=== PATIENT | female | born 1985 | race African-American/Black ===

== ENCOUNTER 2016-12-17 23:44 | Emergency (ER) | payer MEDICAID ==
[~2016-12-17] VITALS: Ht 162.6 cm; Wt 61.2 kg
[~2016-12-17 23:44] MED LIST: LORAZEPAM0.5 MG ORAL
[2016-12-17] MEDS ORDERED: EPINEPHrine 30ml ONE (23:50)
[2016-12-17] MEDS ORDERED: EPINEPHrine 1mg/1ml Amp ONE (23:52)
[2016-12-18] VITALS: BP 130/70
[2016-12-18] MEDS ORDERED: DiphenhydrAMINE 50mg/ml Inj IVP ONE
[2016-12-18] MEDS ORDERED: Solu-MEDROL 125mg Inj IVP ONE
[2016-12-18] MEDS ORDERED: EPINEPHrine 1mg/1ml Amp IM ONE
[2016-12-18] MEDS ORDERED: Albuterol ud Inhalation HHN ONE
[2016-12-18 00:30] VITALS: BP 128/72
[2016-12-18] MEDS ORDERED: EPIPEN 2-P0.3 MG/0.3 IM (00:47)
--- NOTE | 2016-12-18 00:48 | Emergency Room Report ---
History of Present Illness General Chief Complaint: Allergic Reaction Source: Patient Present Illness HPI Is a 30-year-old female with a history of allergy to shellfish. She presents with chief complaint of severe allergic reaction that started about 10 minutes ago. She accidentally ate some shellfish. Complaining of throat closing off. Complaining of chest tightness and unable to breathe. Has not anything for this. Denies any fever chills denies any nausea vomiting. Symptom is severe. Allergies: Coded Allergies: ACETAMINOPHEN (Verified Allergy, Unknown, 08/10/16) HYDROCODONE (Verified Allergy, Unknown, 08/10/16) SHELLFISH DERIVED (Verified Allergy, Unknown, 12/18/16) Patient History Past Medical History: see triage record, old chart reviewed Past Surgical History: none Pertinent Family History: none Social History: Denies: smoking Last Menstrual Period: DEC 13 Now: No Immunizations: other Reviewed Nursing Documentation: PMH: Agreed, PSxH: Agreed Nursing Documentation-PMH Past Medical History: No Stated History Review of Systems Eye: Denies: blurred vision, eye pain ENT: Denies: ear pain, nose congestion, throat swelling Respiratory: Reports: shortness of breath, Denies: cough Cardiovascular: Denies: chest pain, palpitations Gastrointestinal: Denies: abdominal pain, diarrhea, nausea, vomiting Musculoskeletal: Denies: back pain, joint pain Skin: Denies: rash Neurological: Denies: headache, numbness Endocrine: Denies: increased thirst, increased urine Hematologic/Lymphatic: Denies: easy bruising All Other Systems: negative except mentioned in HPI Physical Exam Vital Signs Date Time Temp Pulse Resp B/P Pulse Ox O2 Delivery O2 Flow Rate FiO2 12/17/16 23:56 99.0 118 23 132/73 100 Room Air 12/18/16 00:00 21 vitals with tachycardia Sp02 EP Interpretation: reviewed, normal General Appearance: well appearing, alert, severe distress Head: normocephalic, atraumatic Eyes: bilateral eye EOMI, bilateral eye PERRL ENT: hearing grossly normal, normal pharynx Neck: full range of motion, supple, no meningismus Respiratory: chest non-tender, lungs clear, normal breath sounds, decreased breath sounds, accessory muscle use Cardiovascular #1: regular rate, rhythm, no murmur Gastrointestinal: normal bowel sounds, non tender, no mass, no organomegaly, no bruit, non-distended Musculoskeletal: back normal, gait/station normal, normal range of motion Neurologic: alert, oriented x3 Psychiatric: mood/affect normal Skin: warm/dry Procedures Critical Care Time Critical Care Time Critical care is mandated in this patient who presented with anaphylaxis secondary to food allergy. Patient require my urgent intervention to attenuate the risks of respiratory collapse which may lead to cardiovascular collapse and . Critical care time is 35 minutes excluding any reportable procedure. Critical care time included evaluation, multiple reevaluation, looking at old charts, interpreting laboratory and diagnostic data, discussing case with patient and family and consultants, and charting. 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 She is comfortable now after epinephrine, Benadryl and Solu-Medrol. We'll observe for rebound effect. If normal, we'll discharge home with EpiPen. Last Vital Signs Date Time Temp Pulse Resp B/P Pulse Ox O2 Delivery O2 Flow Rate FiO2 12/18/16 00:10 98 24 100 Room Air 21 12/18/16 00:00 98.9 130/70 Status: improved Disposition: HOME, SELF-CARE Condition: Stable Scripts Epinephrine (Epipen 2-August) 0.3 Mg/0.3 Ml Auto.injct 0.3 MG IM ONCE, #1 EA Prov: JUANCARLOS VANN M.D. 12/18/16 Referrals: NOT CHOSEN IPA/,REFERRING (PCP) Additional Instructions: Avoid seafood. Followup your DrSohail in 2-3 days. Return if worse. Use EpiPen if you have a severe reaction. JUANCARLOS VANN M.D. Dec 18, 2016 00:48
[2016-12-18 01:15] VITALS: BP 126/76
[2016-12-18 02:00] VITALS: BP 99/75
[2016-12-18 02:05] VITALS: BP 99/75
== END 2016-12-18 02:10 | disposition home or self-care (01) ==
LOC: EMR 23:50
DX: T78.02XA Anaphylactic reaction due to shellfish (crustaceans), initial encounter (principal); Z88.6 Allergy status to analgesic agent; Z91.013 Allergy to seafood; X58.XXXA Exposure to other specified factors, initial encounter; Y92.9 Unspecified place or not applicable; Y99.8 Other external cause status
CPT/HCPCS: 94640; 94664; 96372; 96374; 96375; 99291; J0171; J1200; J2930

== ENCOUNTER 2017-02-07 02:33 | Emergency (ER) | payer SELFPAY ==
[~2017-02-07] VITALS: Ht 162.6 cm; Wt 66.2 kg
[~2017-02-07 02:33] MED LIST changes: +EPIPEN 2-P0.3 MG/0.3 IM
[2017-02-07 02:45] VITALS: BP 121/92
[2017-02-07] MEDS ORDERED: HYDROmorphone 1mg/ml Carpuject IVP ONE (02:45)
[2017-02-07 02:54] LABS: BASOPHILS % (AUTO) 1.2 % (0.0-2.0); EOSINOPHILS % (AUTO) 2.2 % (0.0-3.0); LYMPHOCYTES % (AUTO) 42.7 % (20.0-45.0); MEAN CORPUSCULAR HEMOGLOBIN 28.1 PG (27.0-31.0); MEAN CORPUSCULAR HGB CONC 32.9 G/DL (32.0-36.0); MEAN CORPUSCULAR VOLUME 85 FL (80-99); MEAN PLATELET VOLUME 7.8 FL (6.5-10.1); MONOCYTES % (AUTO) 9.5 % (1.0-10.0); NEUTROPHILS % (AUTO) 44.4 % (45.0-75.0); PLATELET COUNT 333 K/UL (150-450); RED BLOOD COUNT 5.74 M/UL (4.20-5.40); RED CELL DISTRIBUTION WIDTH 12.8 % (11.6-14.8); WHITE BLOOD COUNT 6.3 K/UL (4.8-10.8)
[2017-02-07 02:57] LABS: APPEARANCE,URINE CLEAR; KETONES,URINE NEGATIVE (NEGATIVE); LEUKOCYTE ESTERASE ,URINE NEGATIVE (NEGATIVE); NITRITE,URINE NEGATIVE (NEGATIVE); PH,URINE 7 (4.5-8.0); PROTEIN,URINE NEGATIVE (NEGATIVE); UROBILINOGEN,URINE NORMAL MG/DL (0.0-1.0)
[2017-02-07] MEDS ORDERED: LORazepam Inj 2mg/ml 1ml IV ONE (03:00)
[2017-02-07 03:09] LABS: ALANINE AMINOTRANSFERASE 18 U/L (3-33); ALBUMIN/GLOBULIN RATIO 1.3 (1.0-2.7); ANION GAP 16 (5-15); ASPARTATE AMINO TRANSFERASE 27 U/L (5-40); CALCIUM 10.2 mg/dL (8.6-10.2); CARBON DIOXIDE 26 mEQ/L (20-30); CHLORIDE 99 mEQ/L (98-107); CREATININE 0.7 mg/dL (0.5-0.9); GLOMERULAR FILTRATION RATE > 60 mL/min (>60); HEMOLYSIS 4; POTASSIUM 3.7 mEQ/L (3.4-4.9); SODIUM 141 mEQ/L (135-145); TOTAL PROTEIN 9.1 g/dL (6.6-8.7)
[2017-02-07 03:11] LABS: TROPONIN I < 0.30 ng/mL (<=0.30)
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
[2017-02-07 04:15] VITALS: BP 120/95
--- NOTE | 2017-02-07 09:37 | Diagnostic Imaging Report ---
Indication: Chest pain Technique: CT chest was performed utilizing automated exposure control without intravenous contrast material. Axial and coronal images were generated. CT dose: Total DLP 444 mGycm; CTDI vol 14.6 mGy Comparison: None Findings: Evaluation of the vascular structures are limited without intravenous contrast. The lungs are clear. No pericardial or pleural effusions are identified. The heart size is normal. The thoracic aorta is normal in caliber. There is no bulky mediastinal adenopathy. No pneumothorax is seen. Osseous structures demonstrate no acute abnormality. Impression: No acute abnormality identified as evaluated without contrast. The CT scanner at [facility] is accredited by the [employer] and the scans are performed using protocols designed to limit radiation exposure to as low as reasonably achievable to attain images of sufficient resolution adequate for diagnostic evaluation.
== END 2017-02-07 04:15 | disposition home or self-care (01) ==
LOC: EMR 02:45
DX: R07.9 Chest pain, unspecified (principal); Z76.5 Malingerer [conscious simulation]; E11.9 Type 2 diabetes mellitus without complications; I10 Essential (primary) hypertension; F41.9 Anxiety disorder, unspecified; Z88.6 Allergy status to analgesic agent; Z88.8 Allergy status to other drugs, medicaments and biological substances; Z91.013 Allergy to seafood
CPT/HCPCS: 36415; 71250; 80053; 80300; 81003; 81025; 84484; 85025; 96360; 96374; 96375; 99284; J1170; J2405